=== PATIENT | male | born 1990 | race Caucasian/White ===

== ENCOUNTER 2017-09-19 01:08 | Emergency (ER) | payer BC ==
[~2017-09-19] VITALS: Ht 177.8 cm; Wt 119.8 kg
[2017-09-19 01:36] LABS: BASOPHIL (%) 0.5 % (0-1); EOSINOPHIL (%) 2.1 % (0-5); EOSINOPHIL COUNT 0.2 K/uL (0-0.3); HEMATOCRIT 47.4 % (38.0-50.0); HEMOGLOBIN 16.9 G/DL (12.5-16.6); IMMATURE GRANULOCYTE (%) 0.4 % (0.0-0.7); LYMPHOCYTE (%) 27.5 % (15-42); MCH 33.1 PG (29.0-34.0); MCHC 35.7 G/DL (30.0-36.0); MCV 92.8 FL (86-99); MONOCYTE COUNT 0.4 K/uL (0-0.8); NEUTROPHIL (%) 63.5 % (45-76); NEUTROPHIL COUNT 4.6 K/uL (1.8-6.4); PLATELET COUNT 283 K/uL (156-360); RBC DIS.WIDTH-CV 12.1 % (11.8-14.6); RBC DIS.WIDTH-SD 41.6 % (39-53); RED BLOOD COUNT 5.11 M/uL (4.00-5.50); WHITE BLOOD COUNT 7.3 K/uL (4.1-10.2)
[2017-09-19 01:50] LABS: ALBUMIN 4.3 g/dL (3.2-4.8); CHLORIDE 105 mEq/L (99-109); POTASSIUM 4.3 mEq/L (3.7-5.4); SODIUM 138 mEq/L (136-147)
[2017-09-19 01:52] LABS: GLUCOSE 97 mg/dL (70-99); TOTAL PROTEIN 7.2 g/dL (6.4-8.3)
[2017-09-19 01:54] LABS: TOTAL BILIRUBIN 0.7 mg/dL (0.0-1.0)
[2017-09-19 01:56] LABS: ALKALINE PHOSPHATASE 95 IU/L (3-129); GFR ESTIMATE (CALCULATED) > 59 mL/min/ (58.99-99999)
[2017-09-19 01:57] LABS: UREA NITROGEN (BUN) 14 mg/dL (9-23)
[2017-09-19 01:58] LABS: AST (GOT) 21 IU/L (2-34)
[2017-09-19 01:59] LABS: ALT (GPT) 40 IU/L (3-49); LIPASE 17 U/L (1.0-51.0)
[2017-09-19] MEDS ORDERED: ZOFRAN4 MG PO (03:40)
[2017-09-19 03:49] VITALS: BP 135/90
== END 2017-09-19 03:50 | disposition home or self-care (01) ==
LOC: EME 01:08
PROVIDERS: Emergency Medicine
DX: K52.9 Noninfective gastroenteritis and colitis, unspecified (principal); Z87.891 Personal history of nicotine dependence
CPT/HCPCS: 80053; 83690; 85025; 87651 90; 99281; 99284

== ENCOUNTER 2017-11-21 00:44 | Emergency (ER) | payer BC ==
[~2017-11-21] VITALS: Ht 177.8 cm; Wt 118.2 kg
[~2017-11-21 00:44] MED LIST: ZOFRAN4 MG PO
[2017-11-21 01:18] LABS: HEMATOCRIT 47.9 % (38.0-50.0); HEMOGLOBIN 17.3 G/DL (12.5-16.6); MCH 32.9 PG (29.0-34.0); MCHC 36.1 G/DL (30.0-36.0); MCV 91.1 FL (86-99); PLATELET COUNT 287 K/uL (156-360); RBC DIS.WIDTH-CV 12.2 % (11.8-14.6); RBC DIS.WIDTH-SD 40.1 % (39-53); RED BLOOD COUNT 5.26 M/uL (4.00-5.50); WHITE BLOOD COUNT 7.4 K/uL (4.1-10.2)
[2017-11-21 01:27] LABS: CHLORIDE 104 mEq/L (99-109); POTASSIUM 4.4 mEq/L (3.7-5.4); SODIUM 136 mEq/L (136-147)
[2017-11-21 01:28] LABS: GLUCOSE 93 mg/dL (70-99)
[2017-11-21 01:32] LABS: CREATININE 0.9 mg/dL (0.6-1.3); GFR ESTIMATE (CALCULATED) > 59 mL/min/ (58.99-99999)
[2017-11-21 01:33] LABS: UREA NITROGEN (BUN) 14 mg/dL (9-23)
[2017-11-21 01:51] LABS: APPEARANCE CLEAR ((CLEAR)); BILIRUBIN NEGATIVE; BLOOD NEGATIVE; COLOR YELLOW ((YELLOW)); GLUCOSE (STRIP) NEGATIVE; KETONES NEGATIVE; LEUKOCYTES NEGATIVE; NITRITE NEGATIVE; PROTEIN (STRIP) NEGATIVE; SPECIFIC GRAVITY 1.025 (1.000-1.030); UCUL ADDED? NO; UROBILINOGEN 0.2 MG/DL (0.2-1.0)
[2017-11-21 02:56] VITALS: BP 119/77
== END 2017-11-21 03:00 | disposition home or self-care (01) ==
LOC: EME 00:44
DX: R19.7 Diarrhea, unspecified (principal); Z87.891 Personal history of nicotine dependence
CPT/HCPCS: 80048; 81003; 85027; 99281; 99284

== ENCOUNTER 2018-01-23 07:12 | Emergency (ER) | payer OTHER, BC ==
[~2018-01-23] VITALS: Ht 177.8 cm; Wt 118.8 kg
[2018-01-23 08:56] VITALS: BP 127/83
== END 2018-01-23 08:57 | disposition home or self-care (01) ==
LOC: EME 07:12
DX: S60.221A Contusion of right hand, initial encounter (principal); W27.8XXA Contact with other nonpowered hand tool, initial encounter; Y99.0 Civilian activity done for income or pay
CPT/HCPCS: 73130; 99281; 99282